=== PATIENT | male | born 1975 | race Caucasian/White ===

== ENCOUNTER 2018-11-07 10:22 | Inpatient (IN) | payer SELFPAY ==
[~2018-11-07] VITALS: Ht 162.6 cm; Wt 59.1 kg
[2018-11-07] MEDS ORDERED: HALOPERIDOL LACTATE 5 MG/ML VIAL IM ONE (10:45)
[2018-11-07] MEDS ORDERED: DiphenhydrAMINE HCL 50 MG/ML VIAL IM ONE (10:45)
[2018-11-07] MEDS ORDERED: LORazepam 2 MG/ML VIAL IM ONE (10:45)
[2018-11-07 15:31] LABS: AMPHET/METH SCREEN,URINE POSITIVE (NEGATIVE); BARBITURATE SCREEN, URINE NEGATIVE (NEGATIVE); BENZODIAZEPINES SCREEN,URINE POSITIVE (NEGATIVE); CANNABINOID SCREEN,URINE NEGATIVE (NEGATIVE); COCAINE SCREEN,URINE NEGATIVE (NEGATIVE); METHADONE SCREEN, URINE NEGATIVE (NEGATIVE); OPIATE SCREEN,URINE POSITIVE (NEGATIVE)
[2018-11-07 15:32] LABS: PHENCYCLIDINE SCREEN,URINE NEGATIVE (NEGATIVE)
[2018-11-07] MEDS ORDERED: MAGNESIUM HYDROXIDE SUSPENSION 30 ML UDCUP PO PRN (16:45)
[2018-11-07] MEDS ORDERED: IBUPROFEN 600 MG TABLET PO PRN (16:45)
[2018-11-07] MEDS ORDERED: LOPERAMIDE HCL 2 MG CAPSULE PO PRN (16:45)
[2018-11-07] MEDS ORDERED: ACETAMINOPHEN 325 MG TABLET PO PRN (16:45)
[2018-11-07] MEDS ORDERED: HydrOXYzine PAMOATE 50 MG CAPSULE PO PRN (16:45)
[2018-11-07] MEDS ORDERED: QUEtiapine FUMARATE 100 MG TABLET PO PRN (16:45)
[2018-11-07] MEDS ORDERED: CloNIDine HCL 0.1 MG TABLET PO PRN (16:45)
[2018-11-07] MEDS ORDERED: MAG HYDROX/AL HYDROX/SIMETH ES 30 ML SUSPENSION UDCUP PO PRN ×2 (16:45)
[2018-11-07 17:06] LABS: BASOPHILS % (AUTO) 0.9 % (0.0-2.0); EOSINOPHILS % (AUTO) 2.1 % (1.0-6.0); HEMATOCRIT 40.1 % (41-53); HEMOGLOBIN 13.1 g/dL (13.5-17.5); LYMPHOCYTES # (AUTO) 2.3 K/uL (1.0-4.8); LYMPHOCYTES % (AUTO) 29.2 % (22.0-44.0); MEAN CORPUSCULAR HEMOGLOBIN 27.7 pg (26.0-34.0); MEAN CORPUSCULAR HGB CONC 32.7 G/dL (31.0-37.0); MEAN CORPUSCULAR VOLUME 85 fL (80-100); MONOCYTES # (AUTO) 0.7 K/uL (0.1-1.0); MONOCYTES % (AUTO) 9.1 % (2.0-9.0); NEUTROPHILS # (AUTO) 4.7 K/uL (1.8-7.7); NEUTROPHILS % (AUTO) 58.7 % (40.0-70.0); PLATELET COUNT (AUTO) 254 K/uL (150-450); RED BLOOD CELL COUNT(AUTO) 4.74 MIL/uL (4.50-5.90); RED CELL DISTRIBUTION WIDTH 13.6 % (11.5-14.5)
[2018-11-07 17:19] LABS: ANION GAP 9 mmol/L (8-16); CALCIUM, TOTAL 9.2 mg/dL (8.8-10.5); CARBON DIOXIDE 28 mmol/L (22-29); CHLORIDE 108 mmol/L (98-107); GLOMERULAR FILTR. RATE CALC > 60 mL/min (>60); GLUCOSE,RANDOM 100 mg/dL (70-110); POTASSIUM 3.9 mmol/L (3.5-5.1); SODIUM SERUM 145 mmol/L (136-145); UREA NITROGEN, BLOOD 15 mg/dL (7-18)
[2018-11-07 17:25] LABS: ALANINE AMINOTRANSFERASE 24 U/L (12-78); ALBUMIN 3.1 g/dL (3.4-5.0); ALKALINE PHOSPHATASE 111 U/L (46-116); ASPARTATE AMINOTRANSFERASE 28 U/L (15-37); BILIRUBIN,TOTAL 0.3 mg/dL (0.1-1.0); TOTAL PROTEIN, SERUM 7.5 g/dL (6.4-8.2)
[2018-11-07 18:44] LABS: CHOL/HDL RATIO 1.9 (4.2-7.3); CHOLESTEROL 114 mg/dL (131-200); HDL CHOLESTEROL 60 mg/dL (40-60); LDL CHOL (CALC.) 40 mg/dL (0-130); TRIGLYCERIDES 69 mg/dL (15-150)
[2018-11-07] MEDS: LORazepam 2 MG TABLET PO PRN (19:51)
[2018-11-07] MEDS: CloNIDine HCL 0.1 MG TABLET PO SCH ×2 (20:11→22:00)
[2018-11-07 21:00] VITALS: BP 125/79
[2018-11-07 22:00] VITALS: BP 121/80
[2018-11-07] MEDS: MIRTAZAPINE 15 MG TABLET PO SCH (22:11)
[2018-11-07] MEDS: ZOLPIDEM TARTRATE 10 MG TABLET PO PRN (22:12)
[2018-11-07] MEDS: ACAMPROSATE CALCIUM 333 MG DR TABLET PO SCH (22:12)
[2018-11-07 23:00] VITALS: BP 118/78
[2018-11-08] MEDS: LORazepam 2 MG TABLET PO PRN (00:23)
[2018-11-08 01:00] VITALS: BP 120/94
[2018-11-08] MEDS ORDERED: HALOPERIDOL LACTATE 5 MG/ML VIAL IM ONE (01:15)
[2018-11-08] MEDS ORDERED: DiphenhydrAMINE HCL 50 MG/ML VIAL IM ONE (01:15)
[2018-11-08] MEDS ORDERED: LORazepam 2 MG/ML VIAL IM ONE (01:15)
[2018-11-08 01:46] VITALS: BP 120/94
[2018-11-08] MEDS: CloNIDine HCL 0.1 MG TABLET PO SCH ×4 (06:00→20:24)
[2018-11-08] MEDS: ACAMPROSATE CALCIUM 333 MG DR TABLET PO SCH ×3 (09:38→16:24)
[2018-11-08 17:07] VITALS: BP 124/80
[2018-11-08 17:08] VITALS: BP 119/82
[2018-11-08] MEDS: MIRTAZAPINE 15 MG TABLET PO SCH (20:23)
[2018-11-08] MEDS: ZOLPIDEM TARTRATE 10 MG TABLET PO PRN (21:15)
[2018-11-09 06:00] VITALS: BP 125/88
[2018-11-09] MEDS: CloNIDine HCL 0.1 MG TABLET PO SCH ×4 (07:09→21:33)
[2018-11-09] MEDS: ACAMPROSATE CALCIUM 333 MG DR TABLET PO SCH ×3 (08:26→16:49)
[2018-11-09 08:53] VITALS: BP 97/59
[2018-11-09 16:33] VITALS: BP 105/62
[2018-11-09] MEDS ORDERED: MIRTAZAPINE 30 MG TABLET PO SCH (21:00)
[2018-11-10] MEDS: CloNIDine HCL 0.1 MG TABLET PO SCH ×2 (06:00→12:12)
[2018-11-10 06:10] VITALS: BP 125/75
[2018-11-10 08:30] VITALS: BP 105/66
[2018-11-10] MEDS: ACAMPROSATE CALCIUM 333 MG DR TABLET PO SCH ×2 (08:52→12:12)
[2018-11-10] MEDS ORDERED: ACAM333T7 PO (15:45)
[2018-11-10] MEDS ORDERED: MIRT30 PO (15:45)
== END 2018-11-10 17:15 | disposition home or self-care (01) | DRG 885 ==
LOC: EMS 10:23 → 3EC 19:41
PROVIDERS: ADMIT Psychiatry & Neurology Psychiatry; ATTEND Psychiatry & Neurology Psychiatry
DX: F20.0 Paranoid schizophrenia (principal); R45.851 Suicidal ideations; F18.90 Inhalant use, unspecified, uncomplicated; F17.210 Nicotine dependence, cigarettes, uncomplicated; F15.90 Other stimulant use, unspecified, uncomplicated; F11.90 Opioid use, unspecified, uncomplicated; Z81.8 Family history of other mental and behavioral disorders; Z78.1 Physical restraint status
CPT/HCPCS: 70450; 70486; 96372; 99291; J1200; J1630; J2060